=== PATIENT | male | born 1970 | race Caucasian/White ===

== ENCOUNTER 2019-09-29 17:28 | Emergency (ER) | payer BC ==
[2019-09-29] MEDS ORDERED: Diphtheria,Pertussis(Acell),Tetanus Vaccine 0.5 ML Syringe IM ONE (17:44)
[2019-09-29] MEDS ORDERED: Octyl 2-Cyanoacrylate 1 Tube TOP ONE (17:44)
--- NOTE | 2019-09-29 17:47 | EDM.PDOC ---
ED HPI GENERAL MEDICAL PROBLEM - General Chief Complaint: Laceration Stated Complaint: cut finger Time Seen by Provider: 09/29/19 17:31 Source of Information: Reports: Patient, Old Records History Limitations: Reports: No Limitations - History of Present Illness INITIAL COMMENTS - FREE TEXT/NARRATIVE: 49-year-old male with no past medical history presenting with a laceration. A pproximately 90 minutes prior to arrival, the patient was at work when he accidentally injured his right middle finger with a piece of galvanized sheet metal. No other injuries. Tetanus immunization status is uncertain. Past medical history: Reviewed, no additional pertinent history. Surgical history: Reviewed in system, no additional pertinent history. Social history: Reviewed in system, no additional pertinent history. Family history: Reviewed in system, no additional pertinent history. PHYSICAL EXAM Vital signs reviewed. Nursing notes reviewed. Constitutional: Awake, alert, non-distressed. Eyes: EOMI, conjunctiva normal, no discharge, no scleral icterus. Cardiovascular: 2+ radial pulse, capillary refill less than 2 seconds. Pulmonary: normal work of breathing, no accessory muscle use. Musculoskeletal: No deformities. Integumentary: Appropriate color for ethnicity, warm, dry, no pallor or jaundice, no rash. 2 cm laceration to the volar surface of the right middle digit overlying the finger pad, hemostatic. Neurologic: Alert, answering questions appropriately, normal speech, no facial droop, moving all extremities well. Psychiatric: Appropriate mood and affect, normal thought process. - Related Data Allergies Allergy/AdvReac Type Severity Reaction Status Date / Time No Known Allergies Allergy Verified 09/29/19 17:41 Home Meds: Home Meds . [No Known Home Meds] 07/03/18 [History] ED ROS GENERAL - Review of Systems Review Of Systems: See Below ED EXAM, SKIN/RASH Exam: See Below ED SKIN PROCEDURES - Laceration/Wound Repair Right Anterior Digit - 3rd (Middle) Appearance: Superficial Distal NVT: Neuro & Vascular Intact Skin Prep: Saline Exploration/Debridement/Repair: Wound Explored, In a Bloodless Field, No Foreign Material Found Closed with: Dermabond Lac/Wound length In cm: 2 Tetanus Status Addressed: Yes Complications: No Course - Vital Signs Text/Narrative:: 49-year-old male presenting with a finger laceration. Tetanus immunization booster given. Wound was irrigated with saline under pressure with a syringe. I then examined the wound. No evidence of contamination or foreign body. Wound edges are well approximated on their own. Tissue adhesive glue was applied with excellent result. Finger was then bandaged with tube gauze. Stable to discharge home. Plan: Patient is stable to discharge home with outpatient primary care clinic follow-up if needed. Strict emergency department return precautions were provided, patient indicated understanding. All questions were answered prior to departure. Discharged in good condition. Last Recorded V/S: Last Vital Signs Temp 36.3 C 09/29/19 17:42 Pulse 77 09/29/19 17:42 Resp 18 09/29/19 17:42 BP 143/94 H 09/29/19 17:42 Pulse Ox 98 09/29/19 17:42 - Orders/Labs/Meds Orders: Active Orders 24 hr Category Date Time Status Vaccines to be Administered [RC] PER UNIT ROUTINE Care 09/29/19 17:45 Active Meds: Medications Discontinued Medications Generic Name Dose Route Start Last Admin Trade Name Dominickq PRN Reason Stop Dose Admin Diphtheria/Tetanus/Acell Pertussis 0.5 ml 09/29/19 17:44 09/29/19 17:56 Adacel IM 09/29/19 17:45 0.5 ml .ONCE ONE Administration Octyl Cyanoacrylate 1 applic 09/29/19 17:44 09/29/19 17:56 Dermabond Advance [facility] 09/29/19 17:45 1 applic ONETIME ONE Administration Departure - Departure Time of Disposition: 17:59 Disposition: Home, Self-Care 01 Condition: Good Clinical Impression: Finger laceration Qualifiers: Encounter type: initial encounter Finger: middle finger Damage to nail status: without damage Foreign body presence: without foreign body Laterality: right Qualified Code(s): S61.212A - Laceration without foreign body of right middle finger without damage to nail, initial encounter - Discharge Information Instructions: Sutures, Kailey, or Adhesive Wound Closure, [id number] Referrals: Dov Dutton MD [Primary Care Provider] - 1 Week (As needed.) Forms: ED Department Discharge Additional Instructions: You were seen in the emergency department for a finger laceration. You were given a tetanus immunization booster. Your laceration was repaired with tissue adhesive glue. This will dissolve on its own in the next 5 to 7 days. I would keep your laceration covered with a bandage and a one finger glove. Try to keep it dry. Monitor for redness, swelling, fever of 100.4 higher, chills, or any other new or concerning symptoms. Come back to the ER right away if these symptoms occur. Please return the emergency department immediately if your symptoms worsen or if you feel worse. Thank you for choosing the [facility] emergency department in [place] for your medical needs today. It was a pleasure caring for you. The following information is given to patients seen in the emergency department who are being discharged. This information is to outline your options for follow-up care. We provide all patients seen in our emergency department with a follow-up referral. The need for follow-up, as well as the timing and circumstances, are variable depending upon the specifics of your emergency department visit. If you don't have a primary care physician on staff, we will provide you with a referral. We always advise you to contact your personal physician following an emergency department visit to inform them of the circumstance of the visit and for follow-up with them and/or the need for any referrals to a consulting specialist. The emergency department will also refer you to a specialist when appropriate. This referral assures that you have the opportunity for follow-up care with a specialist. All of these measure are taken in an effort to provide you with optimal care, which includes your follow-up. Under all circumstances we always encourage you to contact your private physician who remains a resource for coordinating your care. When calling for follow-up care, please make the office aware that this follow-up is from your recent emergency room visit. If for any reason you are refused follow-up, please contact the [facility] Emergency Department at and asked to speak to the emergency department charge nurse. If you do not have a primary care physician that is caring for you, you can contact these clinics below to set up an appointment to establish care: [facility] - Primary Care [address] [place] [id number] [facility] [address] [place] [id number] Sepsis Event Note (ED) - Evaluation Sepsis Screening Result: No Definite Risk - Focused Exam Vital Signs: Vital Signs Temp Pulse Resp BP Pulse Ox 09/29/19 17:42 36.3 C 77 18 143/94 H 98 - My Orders Last 24 Hours: My Active Orders 09/29/19 17:45 Vaccines to be Administered [RC] PER UNIT ROUTINE - Assessment/Plan Last 24 Hours: My Active Orders 09/29/19 17:45 Vaccines to be Administered [RC] PER UNIT ROUTINE
== END 2019-09-29 18:25 | disposition home or self-care (01) ==
LOC: MW.ED 17:28
DX: S61.212A Laceration without foreign body of right middle finger without damage to nail, initial encounter (principal); Z23 Encounter for immunization; W26.8XXA Contact with other sharp object(s), not elsewhere classified, initial encounter; Y92.89 Other specified places as the place of occurrence of the external cause; Y99.0 Civilian activity done for income or pay
CPT/HCPCS: 12001; 90471; 90715; 99282; A9270

== ENCOUNTER 2024-05-27 11:57 | Emergency (ER) | payer BC ==
[2024-05-27] MEDS ORDERED: Sodium Chloride 0.9% 2.5 ML Syringe FLUSH PRN (12:44)
[2024-05-27] MEDS ORDERED: Sodium Chloride 0.9% 10 ML Syringe FLUSH PRN (12:44)
[2024-05-27 13:03] LABS: BASOPHILS ABSOLUTE AUTO 0.05 K/uL (0.00-0.20); BASOPHILS PERCENT AUTO 0.6 % (0.0-1.0); EOSINOPHILS ABSOLUTE AUTO 0.22 K/uL (0.00-0.45); EOSINOPHILS PERCENT AUTO 2.8 % (0.0-6.0); HEMATOCRIT 45.5 % (42.0-52.0); HEMOGLOBIN 16.2 g/dL (14.0-18.0); IMMATURE GRAN ABSOLUTE AUTO 0.08 K/uL (0.00-0.05); LYMPHOCYTES ABSOLUTE AUTO 1.86 K/uL (1.00-4.80); LYMPHOCYTES PERCENT AUTO 23.4 % (24.0-44.0); MEAN CORPUSCULAR HEMOGLOBIN 30.1 pg (28.0-32.0); MEAN CORPUSCULAR HGB CONC 35.6 g/dL (32.0-36.0); MEAN CORPUSCULAR VOLUME 84.6 fL (83.0-99.0); MONOCYTES PERCENT AUTO 8.8 % (0.0-8.0); NEUTROPHILS ABSOLUTE AUTO 5.03 K/uL (1.80-7.70); NEUTROPHILS PERCENT AUTO 63.4 % (41.0-71.0); PLATELET COUNT,PLT 128 K/uL (150-400); RED BLOOD CELL COUNT 5.38 M/uL (4.52-5.90); WHITE BLOOD CELL COUNT,WBC 7.94 K/uL (3.9-11.3)
[2024-05-27] MEDS: Iopamidol 755 MG/ML 500 ML Multipack Bottle IVPUSH ONE (13:21)
[2024-05-27] MEDS: Sodium Chloride 0.9% 1,000 ML IV ONE (13:22)
[2024-05-27 13:40] LABS: A/G RATIO 1.1 (0.9-1.6); ALBUMIN 3.7 g/dL (3.4-5.0); BILIRUBIN TOTAL 0.9 mg/dL (0.2-1.0); CALCIUM 9.2 mg/dL (8.5-10.1); EST CRCL DRUG DOSING (CG) 92.03 mL/min
== END 2024-05-27 14:32 | disposition home or self-care (01) ==
LOC: MW.ED 11:57
DX: R10.32 Left lower quadrant pain (principal); I10 Essential (primary) hypertension; E78.00 Pure hypercholesterolemia, unspecified; E11.9 Type 2 diabetes mellitus without complications; Z75.3 Unavailability and inaccessibility of health-care facilities; Z79.899 Other long term (current) drug therapy
CPT/HCPCS: 36415; 74177; 80053; 83690; 85025; 96360; 99284; J7030; Q9967; 99283

== ENCOUNTER 2024-06-22 08:51 | Day surgery (SDC) | payer BC ==
[~2024-06-22 08:51] MED LIST: Sodium Chloride 0.9% 10 ML Syringe FLUSH PRN; Sodium Chloride 0.9% 2.5 ML Syringe FLUSH PRN; Sodium Chloride 0.9% 20 ML SDV IV PRN
[2024-06-22] MEDS: Lactated Ringers 1,000 ML IV SCH (09:29)
[2024-06-22] MEDS ORDERED: Lidocaine 2% 5 ML SDV ONE (10:15)
[2024-06-22] MEDS ORDERED: Propofol 200 MG/20 ML SDV ONE ×2 (10:15→10:52)
== END 2024-06-22 11:45 | disposition home or self-care (01) ==
LOC: MW.SDS 08:51
PROVIDERS: ATTEND Surgery
DX: Z12.11 Encounter for screening for malignant neoplasm of colon (principal); D12.0 Benign neoplasm of cecum; D12.3 Benign neoplasm of transverse colon; I10 Essential (primary) hypertension; E78.00 Pure hypercholesterolemia, unspecified; E11.9 Type 2 diabetes mellitus without complications; E66.9 Obesity, unspecified; Z90.49 Acquired absence of other specified parts of digestive tract; Z68.33 Body mass index [BMI] 33.0-33.9, adult; Z79.899 Other long term (current) drug therapy
CPT/HCPCS: 45380; J2003; J2704; J7120; 00811